=== PATIENT | female | born 1975 | race African-American/Black ===

== ENCOUNTER 2019-08-24 18:02 | Emergency (ER) | payer OTHER ==
[~2019-08-24] VITALS: Ht 162.6 cm; Wt 86.2 kg
[~2019-08-24 18:02] MED LIST: AMOXICILLIN 50500 M1 PO; AZITHROMYCIN PO; CLARITIN10 MG PO; DARVOCET-N 1001 EACH PO; DITROPAN XL5 MG PO; FLEXERIL; FLEXERIL PO; FLONASE NS; FLUOXETINE; GABAPENTIN; HYDROCODONE; IBUPROFEN 600600 M1; IBUPROFEN 600600 M1 PO; KLONOPIN; LIORESAL 10 MG10 MG PO; LYRICA; MOBIC; NORCO 10-325 T1 EACH PO; NORCO 5-325 TA1 EACH PO; OXYBUTYNIN; PENICILLIN VK500 MG PO; PREDNISONE; PREDNISONE50 MG PO; VICODIN 5-5001 EACH PO
[2019-08-24 19:36] LABS: ABSOLUTE NEUTROPHILS 1.6 thou/uL (1.4-8.2); BASOPHILS 1.5 % (0.0-2.0); EOSINOPHILS 2.1 % (0.0-3.0); HEMATOCRIT 34.7 % (37.0-47.0); HEMOGLOBIN 11.2 gm/dL (12.0-15.0); LYMPHOCYTES 35.8 % (24.0-44.0); MCH 26.6 pg (26.0-34.0); MCHC 32.2 g/dL (28.0-37.0); MCV 82.6 fL (80.0-100.0); MONOCYTES 9.9 % (1.0-8.0); PLATELET COUNT 311 thou/uL (150-400); POLYS 50.7 % (36.0-66.0); RDW 15.7 % (10.5-14.5); WBC 3.2 thou/uL (4.0-11.0)
[2019-08-24 19:44] LABS: CALCIUM 8.4 mg/dL (8.5-10.1); POTASSIUM 4.7 mmol/L (3.5-5.1)
[2019-08-24 19:49] LABS: ALBUMIN 3.4 g/dL (3.4-5.0); TOTAL BILIRUBIN 0.3 mg/dL (<0.1-1.0); TOTAL PROTEIN 7.5 g/dL (6.4-8.2)
[2019-08-24] MEDS ORDERED: NORCO 5-325 TA1 EAC1 PO (20:01)
[2019-08-24 20:13] VITALS: BP 118/78
== END 2019-08-24 20:13 | disposition home or self-care (01) ==
LOC: ER 18:02
PROVIDERS: Emergency Medicine
DX: G89.29 Other chronic pain (principal); M79.621 Pain in right upper arm; M19.90 Unspecified osteoarthritis, unspecified site; M79.7 Fibromyalgia; X58.XXXA Exposure to other specified factors, initial encounter; Y93.89 Activity, other specified; Y92.89 Other specified places as the place of occurrence of the external cause; Y99.8 Other external cause status